=== PATIENT | female | born 1980 | race African-American/Black ===

== ENCOUNTER 2023-07-13 05:24 | Emergency (ER) | payer OTHER ==
[~2023-07-13] VITALS: Ht 154.9 cm; Wt 63.5 kg
[2023-07-13] MEDS ORDERED: ACET1TAB23 PO (06:08)
[2023-07-13 06:43] VITALS: BP 118/68; TEMP 97.9; O2SAT 99
== END 2023-07-13 06:44 | disposition home or self-care (01) ==
LOC: ER 05:32
DX: S16.1XXA Strain of muscle, fascia and tendon at neck level, initial encounter (principal); Z79.899 Other long term (current) drug therapy; X58.XXXA Exposure to other specified factors, initial encounter; Y93.89 Activity, other specified; Y92.89 Other specified places as the place of occurrence of the external cause; Y99.8 Other external cause status
CPT/HCPCS: A4663